=== PATIENT | male | born 1985 | race African-American/Black ===

== ENCOUNTER 2018-08-30 09:22 | Emergency (ER) | payer SELFPAY ==
[~2018-08-30] VITALS: Ht 165.1 cm; Wt 115.7 kg
--- OUTSIDE RECORDS SUMMARY | 2018-08-30 09:26 | XMS REPORT ---
Author [facility] Address Unknown Phone Unavailable Care Team Providers Care Sr. Media Manager Name Role Phone Unavailable Unavailable Payers Payer Name Policy Type Policy Number Effective Date Expiration Date Problems This patient has no known problems. Allergies, Adverse Reactions, Alerts Allergy Name Allergy Type Status Severity Reaction(s) Onset Date Inactive Date Treating Clinician Comments No Known Allergies DA Active U 2017-11-06 00:00:00 No Known Allergies DA Active U 2015-10-04 00:00:00 Medications This patient has no known medications.
== END 2018-08-30 10:16 | disposition home or self-care (01) ==
LOC: ER 09:22
DX: K08.89 Other specified disorders of teeth and supporting structures (principal); K02.9 Dental caries, unspecified
CPT/HCPCS: 99282